=== PATIENT | male | born 1990 | race Caucasian/White ===

== ENCOUNTER 2024-07-06 09:58 | Inpatient (IN) | payer BC ==
[~2024-07-06] VITALS: Ht 170.2 cm; Wt 111.6 kg
[2024-07-06] MEDS: ONDANSETRON 4MG 2ML VIAL IV ONE (10:36)
[2024-07-06] MEDS: MORPHINE 2 MG/ML 1ML VIAL IV ONE (10:37)
[2024-07-06 10:44] LABS: BASO # 0.1 10^3/uL (0.0-0.2); BASO % 0.7 % (0.0-1.0); EOS # 0.1 10^3/uL (0.0-0.5); EOS % 0.9 % (0.0-3.0); HEMATOCRIT 45.2 % (42.0-52.0); HEMOGLOBIN 15.5 g/dl (13.5-17.5); LYMPH # 1.2 10^3/uL (1.5-5.0); LYMPH % 10.4 % (24.0-44.0); MEAN CORPUSCULAR HEMOGLOBIN 29.6 pg (27.0-33.0); MEAN CORPUSCULAR HGB CONC 34.3 g/dl (32.0-36.5); MEAN CORPUSCULAR VOLUME 86.3 fl (80.0-96.0); MONO # 0.8 10^3/uL (0.0-0.8); MONO % 6.6 % (2.0-8.0); NEUTROPHILS # 9.6 10^3/uL (1.5-8.5); NEUTROPHILS % 80.7 % (36.0-66.0); PLATELET COUNT, AUTOMATED 304 10^3/uL (150-450); RED BLOOD COUNT 5.24 10^6/uL (4.30-6.10); WHITE BLOOD COUNT 11.9 10^3/uL (4.0-10.0)
[2024-07-06] MEDS ORDERED: ISOVUE-370 76% 100ML VIAL As Ordered ONE (10:48)
[2024-07-06 11:07] LABS: ETHYL ALCOHOL (ETHANOL) < 0.003 % (0.000-0.010); LIPASE 61 U/L (12-53); PARTIAL THROMBOPLASTIN TIME 26.1 SECONDS (24.8-34.2); PROTHROMBIN TIME 13.5 SECONDS (12.5-14.5)
[2024-07-06 11:08] LABS: AMYLASE 80 U/L (30-118)
[2024-07-06 11:10] LABS: ALBUMIN 4.1 G/DL (3.2-5.2); ALKALINE PHOSPHATASE 87 U/L (40-129); ALT/SGPT 38 U/L (7.0-40); AST/SGOT 30 U/L (<34); BILIRUBIN,DIRECT 0.1 MG/DL (<0.4); BILIRUBIN,TOTAL 0.4 MG/DL (0.3-1.2); BLOOD UREA NITROGEN 13 MG/DL (9-23); CALCIUM LEVEL 9.7 MG/DL (8.5-10.1); CARBON DIOXIDE LEVEL 25 MMOL/L (20-31); CHLORIDE LEVEL 103 MMOL/L (98-107); CPK CREATINE PHOSPHOKINASE 158 U/L (46-171); CREATININE FOR GFR 0.79 MG/DL (0.70-1.30); GLOMERULAR FILTRATION RATE > 60.0 (>60); GLUCOSE, FASTING 121 MG/DL (60-100); SODIUM LEVEL 139 MMOL/L (136-145); TOTAL PROTEIN 7.4 G/DL (5.7-8.2)
[2024-07-06] MEDS: fentaNYL 100 MCG/2 ML INJECTION IV ONE (11:13)
[2024-07-06 11:18] LABS: AMPHETAMINES LEVEL URINE NEGATIVE (NEGATIVE); BARBITURATES URINE NEGATIVE (NEGATIVE); BENZODIAZEPINES URINE NEGATIVE (NEGATIVE); CANNABINOIDS URINE NEGATIVE (NEGATIVE); COCAINE METABOLITE URINE NEGATIVE (NEGATIVE); METHADONE URINE NEGATIVE (NEGATIVE); OPIATES URINE NEGATIVE (NEGATIVE); PHENCYCLIDINE URINE NEGATIVE (NEGATIVE)
[2024-07-06 11:24] LABS: APPEARANCE, URINE CLEAR (CLEAR); BILIRUBIN, URINE AUTO NEGATIVE (NEGATIVE); COLOR, URINE YELLOW (YELLOW); GLUCOSE, URINE (UA) AUTO NEGATIVE (NEGATIVE); KETONE, URINE AUTO NEGATIVE (NEGATIVE); PROTEIN, URINE AUTO 1+ mg/dL (NEGATIVE); SPECIFIC GRAVITY URINE AUTO 1.012 (1.002-1.035); UROBILINOGEN, URINE AUTO 0.2 mg/dL (0.0-2.0)
[2024-07-06 11:25] LABS: BACTERIA, URINE AUTO 1+ (NEGATIVE); BLOOD, URINE BLOOD NEGATIVE (NEGATIVE); LEUKOCYTE ESTERASE, URINE AUTO NEGATIVE (NEGATIVE); MUCUS, URINE SMALL (NEGATIVE); NITRITE, URINE AUTO NEGATIVE (NEGATIVE); RBC, URINE AUTO 0 /HPF (0-3); SQUAMOUS EPITHELIAL CELL UR AU 0 /HPF (0-6); WBC, URINE AUTO 5 /HPF (0-3)
[2024-07-06 11:41] LABS: CK-MB VALUE MASS < 1.0 NG/ML (<3.6); MB/CK RELATIVE INDEX 0.63 (< OR =4)
[2024-07-06] MEDS: HYDROMORPHONE HCL 0.5 MG/ 0.5 ML SYRINGE IV ONE (12:42)
[2024-07-06] MEDS ORDERED: HOME MED LIST COMPLETE! XX SCH (13:15)
[2024-07-06] MEDS ORDERED: PRAV40TA2 PO (13:15)
[2024-07-06] MEDS ORDERED: IPRATROPIUM 0.5MG/ALBUTEROL 2.5MG INH SOL UD 3ML (DUONEB) NEB PRN (13:50)
[2024-07-06] MEDS: IPRATROPIUM 0.5MG/ALBUTEROL 2.5MG INH SOL UD 3ML (DUONEB) NEB SCH (14:00)
[2024-07-06] MEDS: MORPHINE 4 MG/ML 1ML VIAL IV PRN (14:24)
[2024-07-06] MEDS: ONDANSETRON 4MG 2ML VIAL IV PRN (14:27)
[2024-07-06] MEDS: PANTOPRAZOLE 40MG VIAL IV SCH (14:46)
[2024-07-06] MEDS: NS (Normal Saline) 0.9% 1,000 ML IV SCH (14:46)
[2024-07-06 14:50] LABS: HEMATOCRIT 42.7 % (42.0-52.0); HEMOGLOBIN 14.6 g/dl (13.5-17.5); MEAN CORPUSCULAR HEMOGLOBIN 29.6 pg (27.0-33.0); MEAN CORPUSCULAR HGB CONC 34.2 g/dl (32.0-36.5); MEAN CORPUSCULAR VOLUME 86.4 fl (80.0-96.0); PLATELET COUNT, AUTOMATED 299 10^3/uL (150-450); RED BLOOD COUNT 4.94 10^6/uL (4.30-6.10); WHITE BLOOD COUNT 12.3 10^3/uL (4.0-10.0)
[2024-07-06 16:05] VITALS: BP 164/95; TEMP 97.7; O2SAT 99
[2024-07-06] MEDS: MORPHINE 2 MG/ML 1ML VIAL IV PRN (18:38)
[2024-07-06 20:22] VITALS: BP 138/88; TEMP 98.8; O2SAT 98
[2024-07-06 23:44] VITALS: BP 139/78; TEMP 98.3; O2SAT 97
[2024-07-07 04:00] VITALS: BP 133/81; TEMP 99.1; O2SAT 96
[2024-07-07 05:26] LABS: HEMATOCRIT 41.1 % (42.0-52.0); HEMOGLOBIN 13.9 g/dl (13.5-17.5); MEAN CORPUSCULAR HEMOGLOBIN 29.4 pg (27.0-33.0); MEAN CORPUSCULAR HGB CONC 33.8 g/dl (32.0-36.5); MEAN CORPUSCULAR VOLUME 87.1 fl (80.0-96.0); PLATELET COUNT, AUTOMATED 265 10^3/uL (150-450); RED BLOOD COUNT 4.72 10^6/uL (4.30-6.10); WHITE BLOOD COUNT 8.2 10^3/uL (4.0-10.0)
[2024-07-07 06:01] LABS: BLOOD UREA NITROGEN 9 MG/DL (9-23); CALCIUM LEVEL 8.9 MG/DL (8.5-10.1); CARBON DIOXIDE LEVEL 28 MMOL/L (20-31); CHLORIDE LEVEL 104 MMOL/L (98-107); CREATININE FOR GFR 0.76 MG/DL (0.70-1.30); GLOMERULAR FILTRATION RATE > 60.0 (>60); GLUCOSE, FASTING 98 MG/DL (60-100); POTASSIUM SERUM 4.3 MMOL/L (3.5-5.1); SODIUM LEVEL 140 MMOL/L (136-145)
[2024-07-07 07:39] VITALS: BP 147/77; TEMP 98.5; O2SAT 97
[2024-07-07 11:31] VITALS: BP 132/75; TEMP 98.4; O2SAT 96
[2024-07-07] MEDS: KETOROLAC 30 MG/ML 1ML VIAL IV SCH (11:32)
[2024-07-07] MEDS ORDERED: HOME MED LIST COMPLETE! XX SCH (13:20)
[2024-07-07] MEDS: diphenhydrAMINE 50MG CAP PO ONE (14:57)
[2024-07-07 15:25] VITALS: BP 134/76; TEMP 98.1; O2SAT 96
[2024-07-07 19:24] VITALS: BP 137/77; TEMP 101; O2SAT 94
[2024-07-07] MEDS: ACETAMINOPHEN 325 MG TAB PO PRN (19:56)
[2024-07-07 21:20] VITALS: TEMP 100.1
[2024-07-08] VITALS (8 sets, daily range): BP systolic 130–150; BP diastolic 78–87; TEMP 98.5–99.8; O2SAT 93–95
[2024-07-08 05:27] LABS: HEMATOCRIT 38.7 % (42.0-52.0); HEMOGLOBIN 13.2 g/dl (13.5-17.5); MEAN CORPUSCULAR HEMOGLOBIN 29.6 pg (27.0-33.0); MEAN CORPUSCULAR HGB CONC 34.1 g/dl (32.0-36.5); MEAN CORPUSCULAR VOLUME 86.8 fl (80.0-96.0); PLATELET COUNT, AUTOMATED 223 10^3/uL (150-450); RED BLOOD COUNT 4.46 10^6/uL (4.30-6.10); WHITE BLOOD COUNT 9.3 10^3/uL (4.0-10.0)
[2024-07-08 05:45] LABS: BLOOD UREA NITROGEN 8 MG/DL (9-23); CALCIUM LEVEL 8.7 MG/DL (8.5-10.1); CARBON DIOXIDE LEVEL 27 MMOL/L (20-31); CHLORIDE LEVEL 107 MMOL/L (98-107); CREATININE FOR GFR 0.75 MG/DL (0.70-1.30); GLOMERULAR FILTRATION RATE > 60.0 (>60); GLUCOSE, FASTING 104 MG/DL (60-100); SODIUM LEVEL 142 MMOL/L (136-145)
[2024-07-08] MEDS: LevoFLOXacin IV 750 MG in IV 1 EA IV SCH (11:05)
[2024-07-08] MEDS: LIDOCAINE 1% SDV 5ML VIAL PN ONE (16:56)
[2024-07-08] MEDS: ROPIvacaine 0.5% 30ML VIAL PN ONE (16:57)
[2024-07-09 04:02] VITALS: BP 138/75; TEMP 98.9; O2SAT 94
[2024-07-09 06:14] LABS: HEMATOCRIT 37.6 % (42.0-52.0); MEAN CORPUSCULAR HEMOGLOBIN 29.5 pg (27.0-33.0); MEAN CORPUSCULAR HGB CONC 34.6 g/dl (32.0-36.5); MEAN CORPUSCULAR VOLUME 85.5 fl (80.0-96.0); PLATELET COUNT, AUTOMATED 213 10^3/uL (150-450); WHITE BLOOD COUNT 8.3 10^3/uL (4.0-10.0)
[2024-07-09 06:43] LABS: BLOOD UREA NITROGEN < 5 MG/DL (9-23); CALCIUM LEVEL 8.6 MG/DL (8.5-10.1); CARBON DIOXIDE LEVEL 25 MMOL/L (20-31); CHLORIDE LEVEL 107 MMOL/L (98-107); CREATININE FOR GFR 0.72 MG/DL (0.70-1.30); GLOMERULAR FILTRATION RATE > 60.0 (>60); GLUCOSE, FASTING 93 MG/DL (60-100); POTASSIUM SERUM 3.8 MMOL/L (3.5-5.1); SODIUM LEVEL 142 MMOL/L (136-145)
[2024-07-09 07:14] VITALS: BP 141/80; TEMP 98.8; O2SAT 93
[2024-07-09] MEDS: MORPHINE 2 MG/ML 1ML VIAL IV PRN (09:05)
[2024-07-09 11:59] VITALS: BP 145/88; TEMP 98.7; O2SAT 95
[2024-07-09] MEDS: DOCUSATE SODIUM 100MG CAPSULE PO SCH (13:07)
[2024-07-09] MEDS: PERCOCET 5MG/325MG TAB PO PRN (13:07)
[2024-07-09 16:06] VITALS: BP 136/76; TEMP 98.8; O2SAT 97
[2024-07-09 19:46] VITALS: BP 144/87; TEMP 98; O2SAT 97
[2024-07-09 23:49] VITALS: BP 145/86; TEMP 98.9; O2SAT 94
[2024-07-10 04:07] VITALS: BP 128/72; TEMP 97.3; O2SAT 94
[2024-07-10] MEDS: LevoFLOXacin 750 MG TABLET PO SCH (06:20)
[2024-07-10 06:39] LABS: HEMATOCRIT 35.8 % (42.0-52.0); HEMOGLOBIN 12.3 g/dl (13.5-17.5); MEAN CORPUSCULAR HEMOGLOBIN 29.4 pg (27.0-33.0); MEAN CORPUSCULAR HGB CONC 34.4 g/dl (32.0-36.5); MEAN CORPUSCULAR VOLUME 85.4 fl (80.0-96.0); PLATELET COUNT, AUTOMATED 230 10^3/uL (150-450); RED BLOOD COUNT 4.19 10^6/uL (4.30-6.10)
[2024-07-10 07:12] LABS: BLOOD UREA NITROGEN 7 MG/DL (9-23); CALCIUM LEVEL 8.8 MG/DL (8.5-10.1); CARBON DIOXIDE LEVEL 31 MMOL/L (20-31); CHLORIDE LEVEL 104 MMOL/L (98-107); CREATININE FOR GFR 0.77 MG/DL (0.70-1.30); GLOMERULAR FILTRATION RATE > 60.0 (>60); GLUCOSE, FASTING 98 MG/DL (60-100); POTASSIUM SERUM 3.9 MMOL/L (3.5-5.1); SODIUM LEVEL 143 MMOL/L (136-145)
[2024-07-10 08:00] VITALS: BP 132/70; TEMP 97.3; O2SAT 93
[2024-07-10] MEDS ORDERED: PERCOCET PO (11:44)
[2024-07-10] MEDS ORDERED: LEVO75TAB PO (11:44)
== END 2024-07-10 12:08 | disposition home or self-care (01) | DRG 135 ==
LOC: EDBD 09:58 → M ED 09:58 → M ED INP 13:49 → M PCU 16:04
PROVIDERS: ADMIT Surgery; ATTEND Surgery
DX: S22.41XA Multiple fractures of ribs, right side, initial encounter for closed fracture (principal); Z88.2 Allergy status to sulfonamides; Z88.6 Allergy status to analgesic agent; Z88.8 Allergy status to other drugs, medicaments and biological substances; V86.52XA Driver of snowmobile injured in nontraffic accident, initial encounter